=== PATIENT | female | born 1955 | race African-American/Black ===

== ENCOUNTER 2018-12-13 09:42 | Outpatient (CLI) | payer MEDICARE ==
--- NOTE | 2018-12-13 10:21 | RAD ---
EXAM: 2 views of the right knee HISTORY: Knee pain COMPARISON: None FINDINGS: Moderate to severe osteophytes are seen in the lateral femorotibial compartment. There is a small knee effusion. There is no evidence of acute fracture or dislocation. IMPRESSION: Moderate to severe right knee osteoarthritis
--- NOTE | 2018-12-13 10:21 | RAD ---
EXAM: 2 views of the left knee HISTORY: Knee pain COMPARISON: None FINDINGS: No knee effusion is seen. There is no evidence of acute fracture or dislocation. Mild osteo phyte formation is seen in the lateral femorotibial compartment. IMPRESSION: Mild left knee osteoarthritis.
== END 2018-12-13 09:43 | disposition home or self-care (01) ==
LOC: BICRAD 09:42
PROVIDERS: ATTEND Internal Medicine Rheumatology
DX: M25.561 Pain in right knee (principal); M25.562 Pain in left knee; M17.0 Bilateral primary osteoarthritis of knee

== ENCOUNTER 2019-02-15 08:16 | Outpatient (CLI) | payer MEDICARE ==
[2019-02-15 13:46] LABS: #Eosinphils 0.1 thou/uL (0.0-0.7); #Lymphocytes 1.8 thou/uL (1.20-3.40); #Monocytes 0.6 thou/uL (0.11-0.59); #Neutrophils 3.4 thou/uL (1.40-6.50); %Basophils 0.3 % (0.0-1.0); %Eosinophils 1.4 % (0.0-10.0); %Lymphocytes 30.5 % (21.0-51.0); %Monocytes 10.6 % (0.0-10.0); %Neutrophils 57.2 % (42.0-75.0); Hemoglobin 13.6 g/dL (12.0-16.0); Mean Corpuscular Hemoglobin 30.7 pg (27.0-31.0); Mean Corpuscular Volume 90.4 fL (78.0-98.0); Mean Platelet Volume 8.4 fL (7.4-10.4); Platelet Count 204 thou/uL (130-400); RBC Distribution Width 12.6 % (11.5-14.5); Red Blood Cell (RBC) Count 4.43 mill/uL (4.20-5.40)
[2019-02-15 13:51] LABS: Bacteria/HPF 4+ HPF (None Seen); Bilirubin Negative (Negative); Blood, Urine Negative (Negative); Clarity Clear (Clear); Glucose, Urine (Dipstick) Normal (Negative); Leukocyte Negative Leu/uL (Negative); Nitrite Negative (Negative); Protein, Urine (Dipstick) Negative (Neg-Trace); Prothrombin Time 13.2 SEC (12.0-14.7); RBC/HPF 0-3 HPF (0-3); Squamous Epithelial 0-3 HPF (0-3); Urobilinogen Normal mg/dL (Less than 2); WBC/HPF 0-3 HPF (0-3)
[2019-02-15 14:05] LABS: Anion Gap 14 mmol/L (10-20); BUN (Urea Nitrogen) 12 mg/dL (9.8-20.1); Calc. Creatinine Clearance 0 mL/min (70-130); Calcium 9.6 mg/dL (7.8-10.44); Carbon Dioxide 26 mmol/L (23-31); Chloride 103 mmol/L (98-107); Estimated GFR-MDRD Greater than 90; Glucose 96 mg/dL (80-115); Potassium 3.5 mmol/L (3.5-5.1); Sodium 139 mmol/L (136-145)
--- NOTE | 2019-02-15 17:36 | EKG ---
Test Reason : Blood Pressure : / mmHG Vent. Rate : 072 BPM Atrial Rate : 072 BPM P-R Int : 144 ms QRS Dur : 094 ms QT Int : 384 ms P-R-T Axes : 068 063 -30 degrees QTc Int : 420 ms Normal sinus rhythm with sinus arrhythmia T wave abnormality, consider inferolateral ischemia Abnormal ECG No previous ECGs available Confirmed by DR. Douglas GUDIRY ([id number]) on 02/15/2019 5:36:18 PM Referred By: JOSE Confirmed By:DR. Douglas GUIDRY
== END 2019-02-15 08:17 | disposition home or self-care (01) ==
LOC: LABBT 08:16
PROVIDERS: ATTEND Orthopaedic Surgery
DX: Z01.818 Encounter for other preprocedural examination (principal); M17.11 Unilateral primary osteoarthritis, right knee
CPT/HCPCS: 80048; 81001; 85025; 85610; 87081; 93005; 93010

== ENCOUNTER 2019-03-20 08:28 | Day surgery (SDC) | payer MEDICARE ==
[2019-03-20] MEDS ORDERED: Sodium Chloride 0.9% 100 ML ONE (10:06)
[2019-03-20] MEDS ORDERED: Tranexamic Acid 1,000 MG/10 ML VIAL ONE (10:06)
[2019-03-20] MEDS ORDERED: Midazolam HCl 2 mg/2 ml Vial ONE ×2 (10:09→11:08)
[2019-03-20] MEDS ORDERED: Fentanyl 100 MCG/2 ML VIAL ONE ×3 (10:09→11:48)
[2019-03-20] MEDS ORDERED: Vancomycin 1.5 GRAM/300 ML BAG 1.5 GM in Premix Bag 1 BAG IVPB SCH ×2 (10:15→22:45)
[2019-03-20] MEDS ORDERED: Ropivacaine 0.5% HCl/PF (150 MG/30 ML VIAL) ONE (10:28)
[2019-03-20] MEDS ORDERED: ONDANSETRON 2 MG/ML ONE (10:28)
[2019-03-20] MEDS ORDERED: Ropivacaine 0.2% HCl/PF (40 MG/20 ML VIAL) ONE (10:28)
[2019-03-20] MEDS ORDERED: Dexamethasone 20 MG/5 ML VIAL ONE ×2 (10:28→10:50)
[2019-03-20] MEDS ORDERED: PROPOFOL 200 MG/20 ML VIAL ONE (10:28)
[2019-03-20] MEDS ORDERED: EPINEPHrine 1 MG/ML AMP ONE (10:28)
[2019-03-20] MEDS ORDERED: Ondansetron PF 4 MG/2 ML Vial ONE (10:50)
[2019-03-20] MEDS ORDERED: Rocuronium Bromide 50 MG/5 ML VIAL ONE (10:50)
[2019-03-20] MEDS ORDERED: PROPOFOL 20 ML ONE ×2 (10:50→13:00)
[2019-03-20] MEDS ORDERED: ePHEDrine/0.9% NaCl/PF SYRINGE 50 mg/10 ml ONE (10:50)
[2019-03-20] MEDS ORDERED: Glycopyrrolate 0.2 MG/ML 5 ML SYRINGE ONE (10:50)
[2019-03-20] MEDS ORDERED: Lidocaine 1% PF 5 ML VIAL ONE (10:51)
[2019-03-20] MEDS ORDERED: Bupivacaine 0.25% HCL 30 ML VIAL ONE (11:24)
[2019-03-20] MEDS ORDERED: HYDROcodone/Acetaminophen 10/325 mg Tablet PO PRN ×3 (11:37→14:37)
[2019-03-20] MEDS ORDERED: Promethazine HCl 25 MG/ML VIAL IM PRN ×2 (11:37→14:37)
[2019-03-20] MEDS ORDERED: Ondansetron PF 4 MG/2 ML Vial IVP PRN ×2 (11:37→14:37)
[2019-03-20] MEDS ORDERED: Zolpidem Tartrate 5 MG TAB PO PRN (11:37)
[2019-03-20] MEDS ORDERED: traMADol HCl 50 MG TAB PO PRN ×3 (11:37→14:37)
[2019-03-20] MEDS ORDERED: Ropivacaine HCl/PF 250 ML in Premix Bag 1 BAG NERVE BLCK SCH (11:37)
[2019-03-20] MEDS ORDERED: Fentanyl 100 MCG/2 ML VIAL SLOW IVP PRN ×3 (11:38→14:37)
[2019-03-20] MEDS ORDERED: Ketorolac Tromethamine 30 MG/ML VIAL IVP SCH (12:00)
--- NOTE | 2019-03-20 13:39 | HP ---
HISTORY OF PRESENT ILLNESS: Ms. Munson is a 63-year-old female, who has been following me for her right knee osteoarthritis. The patient has pain with range of motion. Pain is severe for 4 months. The patient is retired, lives in [place] from [place]. She has been seen by Dr. Parsons and cleared preoperatively for surgery. She rates her pain as high as 10/10. She has undergone knee aspirations and steroid injections without fail. She had some relief, but she continues to have pain. PAST MEDICAL HISTORY: Allergies; venous insufficiency; osteoarthritis; obstructive sleep apnea, on BiPAP; hypertension; and depression. PAST SURGICAL HISTORY: Venous ablation, hysterectomy, colonoscopy. ALLERGIES: NO KNOWN DRUG ALLERGIES. SOCIAL HISTORY: The patient is a nonsmoker. The patient lives in [place]. No illicit drug use. Occasional alcohol. The patient's from cancer. REVIEW OF SYSTEMS: Noncontributory. PHYSICAL EXAMINATION: GENERAL: Alert and oriented female, in no acute distress. Resting comfortably in bed. EXTREMITIES: Right lower extremity, the patient has a valgus knee with 120 degrees of motion. No ligamentous laxity. The patient has soft tissue. She is neurovascularly intact. Gait, we will do a straight leg raise. Neurovascularly intact distally. RADIOGRAPHS: Tricompartmental arthritis/valgus angulation. IMPRESSION: Right knee osteoarthritis. PLAN: I discussed the risks and benefits of right total knee arthroplasty to the patient and the patient would like to proceed with a right total knee arthroplasty. She understands the risks and benefits surgery to include, pain, scar, bleeding, infection, damage to vital structures, potential footdrop, need for further surgeries, failure of procedure, damage to vital organs, loss of life or limb. The patient understands these risks and benefits and elected to proceed. Time-out was performed and the patient will be sent back to the operative suite for operation and has been cleared preoperatively by Dr. Parsons. She will follow [place] protocol postop. Job ID: [id number]
--- NOTE | 2019-03-20 14:04 | OP ---
DATE OF PROCEDURE: 03/20/2019 This is Antonio Suarez PA-C dictating a report for Humza Hooper MD. PREOPERATIVE DIAGNOSES: End-stage tricompartmental osteoarthritis and degenerative genu valgum, right knee. POSTOPERATIVE DIAGNOSES: End-stage tricompartmental osteoarthritis and degenerative genu valgum, right knee.. PROCEDURE PERFORMED: Cemented cruciate-sparing computer-assisted navigated right total knee arthroplasty. DIRECTOR OF MECHANICAL ENGINEERING: Antonio Suarez PA-C ANESTHESIA: General via LMA augmented with indwelling adductor canal block and single shot sciatic block. COMPONENTS USED: [employer] Triathlon size 3 primary cemented cruciate-sparing femoral component with a size 2 cemented primary tibial baseplate, 9 mm polyethylene fixed bearing insert, and S27 patellar button. TOURNIQUET TIME: 64 minutes at 300 mmHg. FINDINGS: End-stage severe degenerative tricompartmental disease, [id number] arthrosis, particular osteophyte formation, large serous effusion, hypertrophic synovium, and changes consistent with a degenerative genu valgum, chronic in nature. INPUT: 800 mL of crystalloid. OUTPUT: 200 mL of clear yellow urine. ESTIMATED BLOOD LOSS: Less than 100. DRAINS: None. SPECIMENS: None. COMPLICATIONS: None. COUNTS: Correct. INDICATION FOR SURGERY: [place] is a 63-year-old female, who has had progressive right knee pain and problem with standing and walking for the last 5 to 7 years. She has failed conservative management and elected to proceed with total knee arthroplasty as definitive treatment of her pain. PROCEDURE IN DETAIL: After informed consent was obtained in the preoperative holding area, the patient was taken to the operative suite where general anesthesia was induced. Once adequate level of general anesthesia was obtained, the patient was positioned and a well-padded tourniquet was placed around the right proximal thigh. The right lower extremity was then prepped and draped in the usual sterile fashion. Prior to exsanguination, a time-out was called and all members of the surgical team agreed upon site, surgeon, and patient. The extremity was then exsanguinated and the tourniquet was raised. A midline longitudinal incision was then made directly over the patella extending 2 fingerbreadths above the superior pole of the patella and 2 fingerbreadths inferior to the inferior patellar pole of the patella. Deeper subcutaneous layers were dissected sharply and local bleeding was controlled with Bovie electrocautery. A quad tendon longitudinal split was then made sharply and a median parapatellar arthrotomy was carried out both sharp and with Bovie electrocautery, carried down to 1 fingerbreadth medial to the tibial tubercle. The knee was then placed into flexion and the patella was everted nicely, and a copious fat pad ectomy was performed, allowing for greater exposure of the tibia. The computer-assisted distal femoral fiducial was then placed and pinned firmly, and the distal femoral cutting guide was pinned firmly into place. The oscillating saw was then used to remove the appropriate amount of bone. The 4-in-1 cutting block was then placed on the distal femur and the oscillating saw was used to remove the appropriate amount of bone off the anterior, posterior, and chamfer cuts. After completion of bone cuts, the anterior cruciate ligament was resected sharply and the posterior cruciate ligament retractor was placed and the tibia was subluxed for better exposure. Partial meniscectomies were carried out, and the tibial computer-assisted fiducial was pinned, and the cutting guide was placed. Oscillating saw was then used to remove the bone, with Hohmann retractors used to take care and protect the collateral ligaments. After the tibial resection was performed, a laminar backup administrative coordinator was placed in between the freshened bone cuts. The knee placed at 90 degrees and further bilateral meniscectomies were carried out, and the curved osteotome and curettage were used to remove any excess bone spurs in the posterior compartment. The trial femoral component, tibial baseplate were placed with the appropriate polyethylene trial insert with an appropriate polyethylene spacer and patellar button. The knee was taken through full range of motion with flexion and extension from 0 to 90 degrees and patellar broach squarely in the trochlea without any squinting or subluxation noted. The knee was also stable to varus and valgus stressing at 0, 15, 45, and 90 degrees of flexion. The drawer was negative. All trial components were then removed and the keel punch was used to provide the appropriate defect in the tibia with a mallet. The freshened bone cuts were copiously irrigated with pulsatile lavage of about 1.5 L to remove all excess debris. The freshened bone cuts were then dried with suction and lap sponge. The knee was placed in flexion and retractors were placed to provide access to all bone cuts. Tobramycin-impregnated methyl methacrylate cement was then placed on the freshened bone cuts and implants which were malleted firmly into place. Curettage and [place] elevators were used to remove any excess bone cement. The knee was placed into full extension and the patellar button was placed under compression, and the cement was allowed to cure. Once completed, the components were again taken through full range of motion and copious irrigation of the knee was carried out with another liter of normal saline. All components were inspected fully with full range of motion and varus and valgus stressing. There was no laxity noted and full extension was observed clinically. Primary closure was accomplished with #2 interrupted Vicryl stitch of the arthrotomy defect. This was oversewn with a #2 running Quill barbed stitch. The subcutaneous layer was then closed with a running 0 barbed Monocryl stitch and skin closure accomplished with a running subcuticular 3-0 Monocryl barbed Quill stitch and augmented with cement on the skin. Tourniquet was lowered. Good spontaneous return of distal pulses was noted clinically and a sterile dressing was applied to the incision. The procedure was terminated without any complications. The patient was awakened in the operative suite and taken to the recovery room in stable condition. Job ID: [id number]
--- NOTE | 2019-03-20 14:11 | RAD ---
2 VIEWS RIGHT KNEE: Date: 03/20/19 COMPARISON: 12/13/18. HISTORY: Status post right knee arthroplasty. FINDINGS: 2 views of the right knee show the patient to be status post right knee arthroplasty without perihard reyna lucency or fracture. Air in the soft tissues is from recent surgery. IMPRESSION: Status post right knee arthroplasty without evidence of complication. POS: OFF
--- NOTE | 2019-03-20 14:11 | RAD ---
SINGLE VIEW CHEST: Date: 03/20/19 COMPARISON: None. HISTORY: Status post right knee arthroplasty. Shortness of breath. FINDINGS: Single view of the chest shows a normal sized cardiomediastinal silhouette. There is no evidence of c onsolidation, mass, or pleural effusion. The bones are unremarkable. IMPRESSION: No evidence of acute cardiopulmonary disease. POS: OFF
[2019-03-20] MEDS ORDERED: Acetaminophen 325 MG TAB PO PRN (14:37)
[2019-03-20] MEDS ORDERED: Ketorolac Tromethamine 30 MG/ML VIAL IVP PRN (14:37)
[2019-03-20] MEDS ORDERED: diphenhydrAMINE 25 MG CAP PO PRN (14:37)
[2019-03-20] MEDS: Sodium Chloride 0.9% 1,000 ML IV SCH (17:57)
[2019-03-20 17:59] VITALS: BMI 32.9
[2019-03-20] MEDS ORDERED: CEFAZOLIN 2 GM in Premix Bag 1 BAG IVPB SCH (18:00)
[2019-03-20] MEDS: CEFAZOLIN 2 GM in Premix Bag 1 BAG IVPB SCH (21:00)
[2019-03-20] MEDS ORDERED: Vancomycin HCl 1.5 GM in Sodium Chloride 0.9% 250 ML 300 ML IVPB SCH (22:00)
[2019-03-20] MEDS: Senokot S 8.6-50 MG TAB PO SCH (22:47)
[2019-03-20] MEDS: Zolpidem Tartrate 5 MG TAB PO PRN (22:49)
[2019-03-20] MEDS: Aspirin 81 mg Enteric Coated Tablet PO SCH (22:50)
[2019-03-20] MEDS: Ferrous Gluconate 324 MG TAB PO SCH (22:50)
[2019-03-20] MEDS: HYDROcodone/Acetaminophen 10/325 mg Tablet PO PRN (22:58)
--- NOTE | 2019-03-21 00:26 | CON ---
DATE OF CONSULTATION: 03/20/2019 TIME OF ASSESSMENT: 2199. REASON FOR CONSULTATION: Medical management. HISTORY OF PRESENT ILLNESS: Ms. Munson is a pleasant 63-year-old woman, who is status post right total knee replacement done by a Dr. Hooper earlier today. She apparently was experiencing significant pain associated with right knee osteoarthritis for the last 4 months. The patient states that her pain is very much under control at this present time and she denies any discomfort. She has had something to eat since her surgery and denies any nausea or vomiting. Denies having any chest pain, palpitations, or shortness of breath. No headaches or dizziness. Overall, she feels very well and is without any complaints at present. PAST MEDICAL HISTORY: 1. Venous insufficiency. 2. Osteoarthritis. 3. Obstructive sleep apnea, on CPAP. 4. Hypertension. 5. Depression. PAST SURGICAL HISTORY: 1. Venous ablation. 2. Hysterectomy. 3. Colonoscopy. 4. Right total knee arthroplasty, 03/20/2019. SOCIAL HISTORY: The patient lives alone. Denies any tobacco use. She reports occasional alcohol and denies any illicit drug use. FAMILY HISTORY: Notable for hypertension. She states her mother, , and a sibling from complications due to hypertension. ALLERGIES: NO KNOWN DRUG ALLERGIES. CURRENT MEDICATIONS: 1. Amlodipine. 2. Cholecalciferol. 3. Celexa. 4. Vitamin B12. 5. Meloxicam. 6. Montelukast. 7. Aleve. 8. Turmeric/curcumin. PHYSICAL EXAMINATION: GENERAL: The patient appears well developed, well nourished, is in no acute distress. She is resting comfortably in bed. VITAL SIGNS: Temperature 97.9, pulse 90, respirations 20, O2 saturation 94% on room air, blood pressure 143/80. HEENT: Normocephalic and atraumatic. Pupils are equal, round, and reactive to light. Sclerae without icterus. Oropharynx is clear. NECK: Supple. LUNGS: Clear to auscultation bilaterally without wheezes, rales, or rhonchi. CARDIAC : Regular rate and rhythm without audible murmurs, rubs, or gallops. ABDOMEN: Soft, nontender, nondistended. Normoactive bowel sounds present. No guarding or rigidity. EXTREMITIES: Mechanical SCDs in place. NEUROLOGIC: Alert and oriented x3. No neuro deficits on exam. SKIN: Warm and dry. INVESTIGATIONS: 1. Chest x-ray done 03/20/2019. No evidence of acute cardiopulmonary disease. 2. Right knee x-ray. Status post right knee arthroplasty. 3. EKG showed normal sinus rhythm. LABORATORY DATA: Done on February 15, 2019. White blood count 6, hemoglobin 13.6, hematocrit 40.1, platelets 204, neutrophils 57.2%. INR 1. Sodium 139, potassium 3.5, BUN 12, creatinine 0.70, GFR greater than 90, calcium 9.6. IMPRESSION AND PLAN: Ms. Munson is a pleasant 63-year-old woman, who is status post right total knee arthroplasty, referred for medical management of the followin. Hypertension. The patient has not been restarted on home medications. Home medications verification pending. I have discussed with nurse taking care of her and she will contact me once home medications are verified, after which we will reconcile her home medications. We will continue to monitor blood pressure. 2. Depression. Resume home medications once verified. 3. Status post right total knee arthroplasty. Pain well controlled at present. Continue pain management as per Surgical Team. 4. Gastrointestinal prophylaxis. Famotidine 20 mg b.i.d. 5. Deep venous thrombosis prophylaxis. Continue with mechanical SCDs. 6. Code status full. Surrogate decision maker is her sister, Celeste Crawford. Thank you for this consultation. We will continue to follow the patient with you. Job ID: [id number]
[2019-03-21] MEDS: Sodium Chloride 0.9% 1,000 ML IV SCH ×3 (00:54→22:02)
[2019-03-21] MEDS: CEFAZOLIN 2 GM in Premix Bag 1 BAG IVPB SCH (04:14)
[2019-03-21] MEDS: HYDROcodone/Acetaminophen 10/325 mg Tablet PO PRN ×4 (04:17→19:47)
[2019-03-21 06:03] LABS: Mean Corpuscular Hemoglobin 30.7 pg (27.0-31.0); Mean Corpuscular Volume 90.3 fL (78.0-98.0); Mean Platelet Volume 8.6 fL (7.4-10.4); Platelet Count 159 thou/uL (130-400); RBC Distribution Width 12.7 % (11.5-14.5); Red Blood Cell (RBC) Count 3.57 mill/uL (4.20-5.40); White Blood Cell (WBC) Count 11.2 thou/uL (4.8-10.8)
[2019-03-21 06:06] LABS: #Lymphocytes 0.7 thou/uL (1.20-3.40); #Monocytes 1.2 thou/uL (0.11-0.59); #Neutrophils 8.8 thou/uL (1.40-6.50); %Basophils 0.1 % (0.0-1.0); %Eosinophils 0.1 % (0.0-10.0); %Lymphocytes 6.7 % (21.0-51.0); %Monocytes 11.2 % (0.0-10.0); Hemoglobin 10.9 g/dL (12.0-16.0); Mean Corpuscular HGB CONC 34.2 g/dL (32.0-36.0); Mean Corpuscular Hemoglobin 30.9 pg (27.0-31.0); Mean Corpuscular Volume 90.4 fL (78.0-98.0); Mean Platelet Volume 8.4 fL (7.4-10.4); Platelet Count 161 thou/uL (130-400); RBC Distribution Width 12.6 % (11.5-14.5); Red Blood Cell (RBC) Count 3.54 mill/uL (4.20-5.40); White Blood Cell (WBC) Count 10.7 thou/uL (4.8-10.8)
[2019-03-21 06:24] LABS: Anion Gap 16 mmol/L (10-20); BUN (Urea Nitrogen) 14 mg/dL (9.8-20.1); Calc. Creatinine Clearance 100 mL/min (70-130); Calcium 8.4 mg/dL (7.8-10.44); Carbon Dioxide 20 mmol/L (23-31); Chloride 106 mmol/L (98-107); Estimated GFR-MDRD Greater than 90; Glucose 134 mg/dL (80-115); Sodium 138 mmol/L (136-145)
[2019-03-21] MEDS: Montelukast Sodium 10 mg Tablet PO SCH (08:08)
[2019-03-21] MEDS: Citalopram 20 MG TAB PO SCH (08:08)
[2019-03-21] MEDS: Multivitamin W/ Minerals 1 TAB PO SCH (08:09)
[2019-03-21] MEDS: Amlodipine 10 MG TAB PO SCH (08:09)
[2019-03-21] MEDS ORDERED: FLU VACC TS2019-20(65YR UP)/PF 180 MCG/0.5 ML SYRINGE IM ONE (09:00)
[2019-03-21] MEDS ORDERED: Prevnar 13-Val Conj/PF 0.5 ML SYRINGE IM ONE (09:00)
[2019-03-21] MEDS: Aspirin 81 mg Enteric Coated Tablet PO SCH ×2 (09:43→19:48)
[2019-03-21] MEDS: Ferrous Gluconate 324 MG TAB PO SCH ×2 (09:44→19:48)
[2019-03-21] MEDS: Senokot S 8.6-50 MG TAB PO SCH ×2 (13:18→22:03)
--- NOTE | 2019-03-21 13:19 | PDOC.HOSPP ---
- Subjective Encounter Date: 03/21/19 Encounter Time: 10:00 Subjective: no sob or chest pain has amb around 60ft with PT this am using i.spirometry - Objective Vital Signs & Weight: Vital Signs (12 hours) Temp Pulse Resp BP BP Pulse Ox 03/21/19 08:09 89 117/73 03/21/19 08:00 93 L 03/21/19 07:46 97.6 F 89 15 117/73 93 L 03/21/19 07:00 97.6 F 89 15 117/73 93 L 03/21/19 04:19 98.6 F 84 16 113/68 98 Weight Admit Weight 192 lb Weight 192 lb I&O: 03/20/19 03/21/19 03/22/19 06:59 06:59 06:59 Intake Total 400 Output Total 450 750 Balance -50 -750 Result Diagrams: 03/21/19 05:34 03/21/19 05:34 Hospitalist ROS - Medication Medications: Active Medications Generic Name Dose Route Start Last Admin Trade Name Freq PRN Reason Stop Dose Admin Hydrocodone Bitart/Acetaminophen 2 tab 03/20/19 14:37 03/21/19 13:16 [place] 10/325 PO 2 tab Q4H PRN Administration Severe Pain (7-10) Amlodipine Besylate 10 mg 03/21/19 09:00 03/21/19 08:09 Norvasc PO 10 mg DAILY CAROLE Administration Aspirin 81 mg 03/20/19 21:00 03/21/19 09:43 Ecotrin PO 81 mg BID CAROLE Administration Cholecalciferol 1,000 units 03/21/19 09:00 03/21/19 08:08 Vitamin D3 PO 1,000 units DAILY CAROLE Administration Citalopram Hydrobromide 20 mg 03/21/19 09:00 03/21/19 08:08 Celexa PO 20 mg DAILY CAROLE Administration Ferrous Gluconate 324 mg 03/20/19 21:00 03/21/19 09:44 Fergon PO 324 mg BID CAROLE Administration Sodium Chloride 1,000 mls @ 100 mls/hr 03/20/19 14:37 03/21/19 00:54 Normal Saline 0.9% IV Not Given .Q10H CAROLE Iron/Minerals/Multivitamins 1 tab 03/21/19 09:00 03/21/19 08:09 Theragran M PO 1 tab DAILY CAROLE Administration Montelukast Sodium 10 mg 03/21/19 09:00 03/21/19 08:08 Singulair PO 10 mg DAILY CAROLE Administration Senna/Docusate Sodium 2 tab 03/20/19 21:00 03/20/19 22:47 Senokot S PO Not Given BID CAROLE Zolpidem Tartrate 5 mg 03/20/19 14:37 03/20/19 22:49 Ambien PO 5 mg HSPRN PRN Administration Insomnia - Exam General Appearance: awake alert Eye: PERRL, anicteric sclera ENT: no oropharyngeal lesions, moist mucosa Neck: supple, no JVD Heart: RRR, no murmur Respiratory: no wheezes, no rales Gastrointestinal: soft, non-tender, non-distended, normal bowel sounds Extremities: no cyanosis, no edema Extremities - other findings: right knee in dressing Neurological: cranial nerve grossly intact, no focal deficits Psychiatric: normal affect, A&O x 3 Hosp A/P (1) Status post total knee replacement, right Code(s): Z96.651 - PRESENCE OF RIGHT ARTIFICIAL KNEE JOINT Status: Acute (2) NOEMI (obstructive sleep apnea) Code(s): G47.33 - OBSTRUCTIVE SLEEP APNEA (ADULT) (PEDIATRIC) Status: Chronic (3) HTN (hypertension) Code(s): I10 - ESSENTIAL (PRIMARY) HYPERTENSION Status: Chronic Qualifiers: Hypertension type: essential hypertension Qualified Code(s): I10 - Essential (primary) hypertension (4) Depression Code(s): F32.9 - MAJOR DEPRESSIVE DISORDER, SINGLE EPISODE, UNSPECIFIED Status : Chronic Qualifiers: Depression Type: unspecified Qualified Code(s): F32.9 - Major depressive disorder, single episode, unspecified (5) Obesity (BMI 30.0-34.9) Code(s): E66.9 - OBESITY, UNSPECIFIED Status: Chronic - Plan continue cpap at night or whenever she sleeps cxr is clear continue asp bid, norvasc, singulair, feso4, celexa on prn fentanyl, narco, toradol and ropivacaine nr block to mobilize per ortho adv post op recovering well i.spirometry
[2019-03-21] MEDS: Zolpidem Tartrate 5 MG TAB PO PRN (22:48)
[2019-03-22] MEDS: Sodium Chloride 0.9% 1,000 ML IV SCH ×2 (02:37→18:17)
[2019-03-22] MEDS: HYDROcodone/Acetaminophen 10/325 mg Tablet PO PRN ×3 (05:41→17:22)
[2019-03-22 06:04] LABS: Hemoglobin 9.6 g/dL (12.0-16.0); Mean Corpuscular HGB CONC 33.9 g/dL (32.0-36.0); Mean Corpuscular Hemoglobin 30.9 pg (27.0-31.0); Mean Corpuscular Volume 90.9 fL (78.0-98.0); Mean Platelet Volume 8.4 fL (7.4-10.4); Platelet Count 132 thou/uL (130-400); RBC Distribution Width 12.6 % (11.5-14.5)
[2019-03-22] MEDS: Montelukast Sodium 10 mg Tablet PO SCH (08:08)
[2019-03-22] MEDS: Ferrous Gluconate 324 MG TAB PO SCH (08:08)
[2019-03-22] MEDS: Multivitamin W/ Minerals 1 TAB PO SCH (08:08)
[2019-03-22] MEDS: Amlodipine 10 MG TAB PO SCH (08:08)
[2019-03-22] MEDS: Citalopram 20 MG TAB PO SCH (08:08)
[2019-03-22] MEDS: Aspirin 81 mg Enteric Coated Tablet PO SCH (08:08)
[2019-03-22 11:48] VITALS: BP 130/78; TEMP 98.5
--- NOTE | 2019-03-22 11:48 | PDOC.HOSPP ---
- Subjective Encounter Date: 03/22/19 Encounter Time: 08:45 Subjective: no sob, feels good no pain in her knee this am - Objective Vital Signs & Weight: Vital Signs (12 hours) Temp Pulse Resp BP BP Pulse Ox 03/22/19 08:08 64 114/67 03/22/19 07:45 98.6 F 64 16 114/67 92 L Weight Admit Weight 192 lb Weight 192 lb I&O: 03/21/19 03/22/19 03/23/19 06:59 06:59 06:59 Intake Total 400 Output Total 450 1550 Balance -50 -1550 Result Diagrams: 03/22/19 05:28 03/21/19 05:34 Hospitalist ROS - Medication Medications: Active Medications Generic Name Dose Route Start Last Admin Trade Name Freq PRN Reason Stop Dose Admin Hydrocodone Bitart/Acetaminophen 2 tab 03/20/19 14:37 03/22/19 10:12 [place] 10/325 PO 2 tab Q4H PRN Administration Severe Pain (7-10) Amlodipine Besylate 10 mg 03/21/19 09:00 03/22/19 08:08 Norvasc PO 10 mg DAILY CAROLE Administration Aspirin 81 mg 03/20/19 21:00 03/22/19 08:08 Ecotrin PO 81 mg BID CAROLE Administration Cholecalciferol 1,000 units 03/21/19 09:00 03/22/19 08:08 Vitamin D3 PO 1,000 units DAILY CAROLE Administration Citalopram Hydrobromide 20 mg 03/21/19 09:00 03/22/19 08:08 Celexa PO 20 mg DAILY CAROLE Administration Ferrous Gluconate 324 mg 03/20/19 21:00 03/22/19 08:08 Fergon PO 324 mg BID CAROLE Administration Ropivacaine 250 ml/ Device 250 mls @ 10 mls/hr 03/20/19 11:37 03/21/19 22:48 NERVE BLCK 03/23/19 11:36 250 mls INF CAROLE Administration As Directed Sodium Chloride 1,000 mls @ 100 mls/hr 03/20/19 14:37 03/22/19 02:37 Normal Saline 0.9% IV Not Given .Q10H CAROLE Iron/Minerals/Multivitamins 1 tab 03/21/19 09:00 03/22/19 08:08 Theragran M PO 1 tab DAILY CAROLE Administration Ketorolac Tromethamine 15 mg 03/20/19 14:37 03/21/19 19:46 Toradol IVP 03/22/19 14:38 15 mg Q8H PRN Administration Pain Montelukast Sodium 10 mg 03/21/19 09:00 03/22/19 08:08 Singulair PO 10 mg DAILY CAROLE Administration Senna/Docusate Sodium 2 tab 03/20/19 21:00 03/21/19 22:03 Senokot S PO Not Given BID CAROLE Tramadol HCl 50 mg 03/20/19 11:37 03/22/19 08:11 Ultram PO 50 mg Q6H PRN Administration Mild Pain (1-3) Zolpidem Tartrate 5 mg 03/20/19 14:37 03/21/19 22:48 Ambien PO 5 mg HSPRN PRN Administration Insomnia - Exam General Appearance: awake alert Eye: PERRL, anicteric sclera ENT: no oropharyngeal lesions, moist mucosa Neck: supple, no JVD Heart: RRR, no murmur Respiratory: no wheezes, no rales Gastrointestinal: soft, non-tender, non-distended, normal bowel sounds Extremities: no cyanosis Extremities - other findings: right knee post op mild edema Neurological: cranial nerve grossly intact, no focal deficits Psychiatric: normal affect, A&O x 3 Hosp A/P (1) Status post total knee replacement, right Code(s): Z96.651 - PRESENCE OF RIGHT ARTIFICIAL KNEE JOINT Status: Acute (2) NOEMI (obstructive sleep apnea) Code(s): G47.33 - OBSTRUCTIVE SLEEP APNEA (ADULT) (PEDIATRIC) Status: Chronic (3) HTN (hypertension) Code(s): I10 - ESSENTIAL (PRIMARY) HYPERTENSION Status: Chronic Qualifiers: Hypertension type: essential hypertension Qualified Code(s): I10 - Essential (primary) hypertension (4) Depression Code(s): F32.9 - MAJOR DEPRESSIVE DISORDER, SINGLE EPISODE, UNSPECIFIED Status : Chronic Qualifiers: Depression Type: unspecified Qualified Code(s): F32.9 - Major depressive disorder, single episode, unspecified (5) Obesity (BMI 30.0-34.9) Code(s): E66.9 - OBESITY, UNSPECIFIED Status: Chronic - Plan continue cpap at night or whenever she sleeps continue asp bid, norvasc, singulair, feso4, celexa on prn fentanyl, narco, toradol and ropivacaine nr block to mobilize per ortho adv i.spirometry dc plan per ortho advice
[2019-03-22] MEDS: Senokot S 8.6-50 MG TAB PO SCH (14:13)
== END 2019-03-22 18:00 | disposition home or self-care (01) ==
LOC: SDC 08:28 → SJJU 11:30 → SDC 03-22 18:00
PROVIDERS: ATTEND Orthopaedic Surgery
PROC: 0SRC0J9 Replacement of Right Knee Joint with Synthetic Substitute, Cemented, Open Approach (ICD-10-PCS; principal; 2019-03-20)
PROC: 8E0YXBZ Computer Assisted Procedure of Lower Extremity (ICD-10-PCS; 2019-03-20)
DX: M17.11 Unilateral primary osteoarthritis, right knee (principal); M21.061 Valgus deformity, not elsewhere classified, right knee; I10 Essential (primary) hypertension; G47.33 Obstructive sleep apnea (adult) (pediatric); F32.9 Major depressive disorder, single episode, unspecified; I87.2 Venous insufficiency (chronic) (peripheral); E66.9 Obesity, unspecified; Z68.33 Body mass index [BMI] 33.0-33.9, adult; Z79.1 Long term (current) use of non-steroidal anti-inflammatories (NSAID); Z79.899 Other long term (current) drug therapy; Z99.89 Dependence on other enabling machines and devices
CPT/HCPCS: 20985; 27447; 71045; 73560; 80048; 85025; 85027; 90670; 97110 ×2; 97116 ×3; 97139 ×4; 97150 ×2; 97530; 98962 ×2; C1713; C1776; G0009; 36415; 90471; J0171; J0690; J1100; J1885; J2001; J2250; J2405; J2704; J2795; J3010; J3490; J7620; S0020

== ENCOUNTER 2019-07-24 10:26 | Outpatient (CLI) | payer MEDICARE ==
--- NOTE | 2019-07-24 11:02 | ULT ---
ULTRASOUND DOPPLER DUPLEX VENOUS RIGHT LOWER EXTREMITY: DATE: 07/24/2019 HISTORY: 64-year-old female with right lower extremity pain and edema TECHNIQUE: Grayscale, color-flow, and spectral analysis, of major veins of right lower extremity. FINDINGS: There is demonstration of blood flow with normal compressibility, of the right common femoral, profun da femoral, greater saphenous, femoral, popliteal, and posterior tibial, veins. IMPRESSION: Negative. No deep venous thrombosis of right lower extremity.
== END 2019-07-24 10:27 | disposition home or self-care (01) ==
LOC: SCSULT 10:26
PROVIDERS: ATTEND Orthopaedic Surgery
DX: M79.661 Pain in right lower leg (principal); M79.89 Other specified soft tissue disorders; Z96.651 Presence of right artificial knee joint